=== PATIENT | male | born 1975 | race Hispanic/Latino ===

== ENCOUNTER 2019-05-11 12:35 | Inpatient (IN) | payer OTHER, SELFPAY ==
[2019-05-11 13:01] LABS: #Eosinphils 0.3 thou/uL (0.0-0.7); #Lymphocytes 2.2 thou/uL (1.20-3.40); #Monocytes 0.3 thou/uL (0.11-0.59); #Neutrophils 5.2 thou/uL (1.40-6.50); %Basophils 0.5 % (0.0-1.0); %Eosinophils 3.5 % (0.0-10.0); %Lymphocytes 27.4 % (21.0-51.0); %Monocytes 3.9 % (0.0-10.0); %Neutrophils 64.7 % (42.0-75.0); Hemoglobin 14.8 g/dL (14.0-18.0); Mean Corpuscular HGB CONC 33.1 g/dL (32.0-36.0); Mean Corpuscular Hemoglobin 30.7 pg (27.0-31.0); Mean Corpuscular Volume 92.7 fL (78.0-98.0); Mean Platelet Volume 6.5 fL (7.4-10.4); Platelet Count 220 thou/uL (130-400); RBC Distribution Width 12.7 % (11.5-14.5); Red Blood Cell (RBC) Count 4.84 mill/uL (4.70-6.10); White Blood Cell (WBC) Count 8.1 thou/uL (4.8-10.8)
[2019-05-11] MEDS ORDERED: Fentanyl 100 MCG/2 ML VIAL ONE ×2 (13:02→16:42)
[2019-05-11] MEDS ORDERED: Adacel (T-DAP) 0.5 ML SYRINGE ONE (13:02)
[2019-05-11] MEDS ORDERED: Ondansetron PF 4 MG/2 ML Vial ONE (13:02)
[2019-05-11 13:10] LABS: PTT 25.8 SEC (22.9-36.1); Prothrombin Time 13.6 SEC (12.0-14.7)
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
[2019-05-11 13:21] LABS: ALT (SGPT) 23 U/L (8-55); AST (SGOT) 29 U/L (5-34); Albumin 4.1 g/dL (3.5-5.0); Alcohol 352 mg/dL (Less than 10); Alkaline Phosphatase 75 U/L (40-150); Anion Gap 13 mmol/L (10-20); BUN (Urea Nitrogen) 9 mg/dL (8.9-20.6); Bilirubin, Total 0.3 mg/dL (0.2-1.2); Calc. Creatinine Clearance 0 mL/min (70-130); Calcium 8.8 mg/dL (7.8-10.44); Carbon Dioxide 22 mmol/L (22-29); Chloride 109 mmol/L (98-107); Estimated GFR-MDRD Greater than 90; Globulin 3.1 g/dL (2.4-3.5); Glucose 96 mg/dL (70-105); Lipase 21 U/L (8-78); Potassium 3.5 mmol/L (3.5-5.1); Protein, Total 7.2 g/dL (6.0-8.3); Sodium 140 mmol/L (136-145)
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
[2019-05-11] MEDS ORDERED: ISOVUE-370 76%-LOCM 1 ML ONE (13:34)
[2019-05-11] MEDS ORDERED: Multivitamins, Adult 10 ML, Thiamine HCl 100 MG, Folic Acid 1 MG in Dextrose 5 %-0.45 %... IV ONE (13:45)
[2019-05-11] MEDS ORDERED: Ondansetron ODT 4 MG TAB PO PRN (13:59)
[2019-05-11] MEDS ORDERED: hydrALAZINE 20 MG/ML VIAL SLOW IVP PRN (13:59)
[2019-05-11] MEDS ORDERED: Dextrose 50% Abboject 50 ML SYRINGE SLOW IVP PRN (13:59)
[2019-05-11] MEDS ORDERED: Promethazine HCl 25 MG/ML VIAL IM PRN ×2 (13:59→20:12)
[2019-05-11] MEDS ORDERED: Insulin Regular 300 UNITS/3 ML VIAL SC PRN (13:59)
[2019-05-11] MEDS ORDERED: Dextrose 5% in Water 1,000 ML IV PRN (13:59)
[2019-05-11] MEDS ORDERED: Rib Fracture Protocol PO SCH ×2 (14:00→19:45)
[2019-05-11] MEDS ORDERED: Senokot 8.6 MG TAB PO PRN (14:15)
[2019-05-11] MEDS ORDERED: Cyclobenzaprine 10 MG TAB PO PRN ×2 (14:30→19:00)
[2019-05-11] MEDS ORDERED: Rib Fracture Protocol IV SCH (14:30)
[2019-05-11] MEDS ORDERED: Gabapentin 300 MG CAP PO SCH (15:00)
[2019-05-11] MEDS ORDERED: Ketorolac Tromethamine 30 MG/ML VIAL ONE (15:03)
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
[2019-05-11] MEDS ORDERED: Acetaminophen 1,000 MG in Premix Bag 1 BAG IVPB ONE (15:30)
[2019-05-11] MEDS ORDERED: Pantoprazole 40 MG VIAL IVP SCH (16:00)
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
[2019-05-11] MEDS ORDERED: traMADol HCl 50 MG TAB PO SCH (18:00)
[2019-05-11] MEDS ORDERED: Ketorolac Tromethamine 30 MG/ML VIAL IVP SCH ×2 (18:00)
[2019-05-11] MEDS ORDERED: Ibuprofen 800 MG TAB PO SCH ×2 (18:00→23:59)
[2019-05-11] MEDS ORDERED: Acetaminophen 500 MG TAB PO SCH (18:00)
[2019-05-11] MEDS ORDERED: Acetaminophen 650 MG Suppository PR SCH (18:00)
--- NOTE | 2019-05-11 18:56 | RAD ---
LEFT CLAVICLE: 05/11/19 Two fluoroscopic images presented. INDICATIONS: Open reduction and internal fixation left clavicle. Intraoperative imaging. FINDINGS/IMPRESSION: These images show plate and screws transfixing the left clavicle. POS: JOSELO
[2019-05-11] MEDS: Oxazepam 10 MG CAP PO SCH (19:18)
[2019-05-11] MEDS: CEFAZOLIN 2 GM in Sodium Chloride 0.9% 100 ML IVPB ONE ×2 (19:18→21:24)
[2019-05-11] MEDS ORDERED: Morphine Sulfate 2 MG/ML SYRINGE SLOW IVP PRN (20:12)
[2019-05-11] MEDS ORDERED: Promethazine HCl 25 MG/ML VIAL SLOW IVP PRN (20:12)
[2019-05-11] MEDS ORDERED: PACU-Morphine 4MG/ML VIAL SLOW IVP PRN (20:12)
[2019-05-11] MEDS ORDERED: Ondansetron HCl/PF 4 MG/2 ML Vial IVP PRN (20:12)
[2019-05-11] MEDS: Gabapentin 300 MG CAP PO SCH (21:08)
[2019-05-11] MEDS: Folic Acid/Vit B Comp W-C PO SCH (21:08)
[2019-05-11] MEDS: Famotidine 20 MG TAB PO SCH (21:09)
[2019-05-11 21:36] VITALS: BMI 27.3
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
[2019-05-12] MEDS: Oxazepam 10 MG CAP PO SCH ×4 (00:10→22:04)
[2019-05-12] MEDS: traMADol HCl 50 MG TAB PO SCH ×4 (00:10→17:50)
[2019-05-12] MEDS: Ibuprofen 800 MG TAB PO SCH ×4 (00:11→23:59)
[2019-05-12] MEDS: Acetaminophen 500 MG TAB PO SCH ×5 (00:11→23:59)
[2019-05-12] MEDS: CEFAZOLIN 2 GM, Admixture Fee 1 EACH in Sodium Chloride 0.9% 100 ML IVPB SCH ×3 (00:13→16:10)
[2019-05-12] MEDS ORDERED: Lactated Ringer's 1,000 ML IV SCH (00:15)
--- NOTE | 2019-05-12 00:51 | PRG ---
DATE OF SERVICE: 05/12/2019 SUBJECTIVE: The patient is currently on the surgical floor. He is immediately postoperative from an open left clavicle fracture and complex laceration of his left eyelid. He has undergone repair of both of these. Dr. Bowen was able to perform his irrigation, debridement, and ORIF of his clavicle. Dr. Borrero was able to do his laceration repair following Dr. Bowen's procedure. The patient tolerated this procedure well. He is currently on the surgical floor. He is awake and communicative with his son acting as a metal hanging helper. The patient states that his ribs are his primary source of discomfort. The patient has just been started on the rib fracture protocol and has been instructed on his incentive spirometry. OBJECTIVE: Otherwise, the patient's vital signs are stable and in no acute distress. PLAN: Plan will be to continue pain management and begin physical and occupational therapy tomorrow. Repeat his chest x-ray in the morning. It was noted that he had a tiny left-sided pneumothorax and I would anticipate the patient being able to be discharged likely within the next 48 hours. Job ID: [id number]
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
[2019-05-12 04:58] LABS: #Lymphocytes 0.9 thou/uL (1.20-3.40); #Monocytes 0.4 thou/uL (0.11-0.59); #Neutrophils 7.1 thou/uL (1.40-6.50); %Basophils 0.2 % (0.0-1.0); %Eosinophils 0.1 % (0.0-10.0); %Lymphocytes 10.1 % (21.0-51.0); %Monocytes 4.9 % (0.0-10.0); %Neutrophils 84.6 % (42.0-75.0); Hemoglobin 12.5 g/dL (14.0-18.0); Mean Corpuscular Hemoglobin 30.6 pg (27.0-31.0); Mean Corpuscular Volume 92.9 fL (78.0-98.0); Mean Platelet Volume 6.9 fL (7.4-10.4); Platelet Count 190 thou/uL (130-400); RBC Distribution Width 12.5 % (11.5-14.5); Red Blood Cell (RBC) Count 4.09 mill/uL (4.70-6.10); White Blood Cell (WBC) Count 8.4 thou/uL (4.8-10.8)
[2019-05-12 05:22] LABS: Phosphorus 3.2 mg/dL (2.3-4.7)
[2019-05-12 05:30] LABS: Anion Gap 11 mmol/L (10-20); BUN (Urea Nitrogen) 6 mg/dL (8.9-20.6); Calc. Creatinine Clearance 162 mL/min (70-130); Calcium 8.3 mg/dL (7.8-10.44); Carbon Dioxide 24 mmol/L (22-29); Chloride 104 mmol/L (98-107); Estimated GFR-MDRD Greater than 90; Glucose 128 mg/dL (70-105); Magnesium 1.6 mg/dL (1.6-2.6); Potassium 3.6 mmol/L (3.5-5.1); Sodium 135 mmol/L (136-145)
[2019-05-12] MEDS ORDERED: PHOS-NAK 1 PKT PACK PO SCH (07:15)
[2019-05-12] MEDS ORDERED: Potassium Chloride 20 MEQ TAB PO SCH (07:15)
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
[2019-05-12] MEDS: Folic Acid/Vit B Comp W-C PO SCH (08:09)
[2019-05-12] MEDS: Gabapentin 300 MG CAP PO SCH ×2 (08:09→16:29)
[2019-05-12] MEDS: Famotidine 20 MG TAB PO SCH ×2 (08:09→21:37)
[2019-05-12] MEDS: Polyethylene Glycol 3350 17 GM Packet PO SCH (08:09)
[2019-05-12] MEDS: Thiamine 100 MG TAB PO SCH (08:09)
[2019-05-12] MEDS ORDERED: CEFAZOLIN 1 GM VIAL SLOW IVP SCH (09:00)
[2019-05-12] MEDS ORDERED: Polyethylene Glycol 3350 17 GM Packet PER TUBE SCH (09:00)
[2019-05-12] MEDS ORDERED: Scopolamine 1.5 mg/72 hour Patch TD SCH (09:00)
[2019-05-12] MEDS: Magnesium Chloride 64 MG TAB PO SCH ×2 (09:55→21:37)
[2019-05-12] MEDS: Folic Acid 1 MG TAB PO SCH (09:55)
[2019-05-12] MEDS ORDERED: Sodium Chloride 0.9% 500 ML IV SCH ×2 (11:15→11:45)
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
[2019-05-12] MEDS ORDERED: Erythromycin Base 0.5% Oint 1 GM TUBE EA EYE SCH (20:30)
[2019-05-12] MEDS ORDERED: Triple Antibiotic Opth Oint 3.5 GM TUBE L EYE SCH ×2 (21:00)
[2019-05-12] MEDS ORDERED: Gabapentin 100 MG CAP PO SCH (21:00)
[2019-05-12] MEDS: Gabapentin 100 MG CAP PO SCH (21:37)
[2019-05-12] MEDS: Erythromycin Base 0.5% Oint 1 GM TUBE EA EYE SCH (21:38)
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
[2019-05-13] MEDS: traMADol HCl 50 MG TAB PO SCH ×3 (05:11→12:31)
[2019-05-13] MEDS: Acetaminophen 500 MG TAB PO SCH ×2 (05:13→12:31)
[2019-05-13] MEDS ORDERED: PHOS-NAK 1 PKT PACK PO SCH (08:00)
[2019-05-13] MEDS: Polyethylene Glycol 3350 17 GM Packet PO SCH (08:40)
[2019-05-13] MEDS: Gabapentin 100 MG CAP PO SCH (08:41)
[2019-05-13] MEDS: Ibuprofen 800 MG TAB PO SCH (08:41)
[2019-05-13] MEDS: Magnesium Chloride 64 MG TAB PO SCH (08:41)
[2019-05-13] MEDS: Famotidine 20 MG TAB PO SCH (08:41)
[2019-05-13] MEDS: Thiamine 100 MG TAB PO SCH (08:41)
[2019-05-13] MEDS: Folic Acid 1 MG TAB PO SCH (08:44)
[2019-05-13] MEDS: Oxazepam 10 MG CAP PO SCH (08:44)
[2019-05-13] MEDS: Erythromycin Base 0.5% Oint 1 GM TUBE EA EYE SCH (10:00)
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
[2019-05-13 11:23] VITALS: BP 116/74; TEMP 98.1
== END 2019-05-13 14:15 | disposition home or self-care (01) | DRG 167 ==
LOC: ERS 12:35 → SURG B 13:41
PROVIDERS: ADMIT Surgery; ATTEND Surgery
PROC: 0PHB04Z Insertion of Internal Fixation Device into Left Clavicle, Open Approach (ICD-10-PCS; principal; 2019-05-11)
PROC: 08QP0ZZ Repair Left Upper Eyelid, Open Approach (ICD-10-PCS; 2019-05-11)
DX: S27.0XXA Traumatic pneumothorax, initial encounter (principal); S42.022B Displaced fracture of shaft of left clavicle, initial encounter for open fracture; S22.42XA Multiple fractures of ribs, left side, initial encounter for closed fracture; F17.210 Nicotine dependence, cigarettes, uncomplicated; F10.129 Alcohol abuse with intoxication, unspecified; S01.112A Laceration without foreign body of left eyelid and periocular area, initial encounter; R40.2411 Glasgow coma scale score 13-15, in the field [EMT or ambulance]; Y93.89 Activity, other specified; Y92.89 Other specified places as the place of occurrence of the external cause; V59.88XA Occupant (driver) (passenger) of pick-up truck or van injured in other specified transport accidents, initial encounter
CPT/HCPCS: 36415; 70450; 70486; 71045; 71260; 72125; 74177; 76000; 80048; 80053; 80307; 83690; 83735; 84100; 85025; 85610; 85730; 90471; 90715; 94640; 94760; 96361; 96365; 96366; 96374; 96375; C1713; G0390; J0131; J0690; J1885; J2405; J3010; J3411; J3490; J7042; J7620; Q9966

== ENCOUNTER 2019-05-25 14:39 | Outpatient (CLI) | payer SELFPAY ==
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
== END 2019-05-25 14:40 | disposition home or self-care (01) ==
LOC: RAD 14:39
PROVIDERS: ATTEND Physician Assistant
DX: S22.42XD Multiple fractures of ribs, left side, subsequent encounter for fracture with routine healing (principal)
CPT/HCPCS: 71046